=== PATIENT | male | born 1945 | race Two or more races ===

== ENCOUNTER 2016-10-16 01:03 | Inpatient (IN) | payer OTHER ==
[~2016-10-16] VITALS: Ht 167.6 cm; Wt 79.4 kg
[2016-10-16 02:03] LABS: Basophils # (auto) 0 uL; Eosinophils # (auto) 0.1 uL; Eosinophils % (auto) 0.8 % (0.0-7.0); Hemoglobin 12.3 g/dL (13.5-17.5); Lymphocytes % (auto) 13.5 % (10.0-50.0); Mean Corpuscular Hemoglobin 30.5 pg (28.0-32.0); Mean Corpuscular Hgb Conc. 32.4 g/dL (32.0-36.0); Mean Corpuscular Volume 94.3 fL (80.0-100.0); Mean Platelet Volume 7.5 fL (7.4-10.4); Monocytes # (auto) 0.6 uL; Monocytes % (auto) 8.4 % (0.0-12.0); Neutrophils # (auto) 5.6 uL; Neutrophils % (auto) 77.3 % (37.0-80.0); Platelet Count (auto) 226 10^3/uL (140-450); White Blood Cell 7.2 10^3/uL (4.4-10.8)
[2016-10-16 02:24] LABS: Albumin 2.8 g/dL (3.4-5.0); Bilirubin, Total 0.3 mg/dL (0.2-1.0); Calcium 8.2 mg/dL (8.5-10.1); Magnesium 2.5 mg/dL (1.6-2.6); Temperature: 21.4 C (20.0-25.0); Total Protein 6.2 g/dL (6.4-8.2)
[2016-10-16 02:32] LABS: Partial Thromboplastin Time 26.3 sec (22.64-33.71); Prothrombin Time 10.8 sec (9.37-12.3)
[2016-10-16] MEDS ORDERED: DEXTROSE 10% 1,000 ML IV ONE ×2 (05:00→09:30)
[2016-10-16] MEDS ORDERED: RANI-226 PO (08:28)
[2016-10-16] MEDS ORDERED: MEMA1TAB (08:28)
[2016-10-16] MEDS ORDERED: FLUO20CA19 PO (08:28)
[2016-10-16] MEDS ORDERED: TAMS0.4C36 PO (08:28)
[2016-10-16] MEDS ORDERED: TRAM50TA2 (08:28)
[2016-10-16] MEDS ORDERED: GABA300C8 PO (08:28)
[2016-10-16] MEDS ORDERED: FUR20T (08:28)
[2016-10-16] MEDS ORDERED: CARV25TA55 PO (08:28)
[2016-10-16] MEDS ORDERED: CLO01T PO (08:28)
[2016-10-16] MEDS ORDERED: CLOP75TA41 PO (08:28)
[2016-10-16] MEDS ORDERED: INSRTEST IV (08:32)
[2016-10-16] MEDS ORDERED: INSU70IN3 SC ×2 (08:32)
[2016-10-16] MEDS ORDERED: SODIUM CHLORIDE 0.9% 1,000 ML IV SCH (09:03)
[2016-10-16] MEDS ORDERED: NITROGLYCERIN 0.4 MG SL TAB SL PRN (09:15)
[2016-10-16] MEDS ORDERED: DEXTROSE (50%) 50ML SYRG IV PRN (09:15)
[2016-10-16] MEDS ORDERED: PROCHLORPERAZINE EDISYLATE 5 MG/ML 2ML VIAL IV PRN (09:15)
[2016-10-16] MEDS ORDERED: ACETAMINOPHEN 500 MG TAB PO PRN (09:15)
[2016-10-16] MEDS ORDERED: LACTULOSE 20Gm/30ML SOLN PO PRN (09:15)
[2016-10-16] MEDS ORDERED: MORPHINE SULF INJ 2 MG/ML SYRINGE 1ML IV PRN ×2 (09:15)
[2016-10-16] MEDS ORDERED: HYDROcodone-ACET 5/325MG TAB PO PRN (09:15)
[2016-10-16] MEDS ORDERED: LORazepam 0.5 MG TAB PO PRN (09:15)
[2016-10-16] MEDS ORDERED: TEMAZEPAM 15 MG CAP PO PRN (09:15)
[2016-10-16] MEDS ORDERED: FLUOXETINE HCL 40 MG PO SCH (10:00)
[2016-10-16] MEDS: ASPirin 81 mg TAB PO SCH (10:04)
[2016-10-16] MEDS: cloNIDine HCL 0.1 MG TAB PO SCH (10:04)
[2016-10-16 10:05] LABS: Amylase 57 U/L (25-115)
[2016-10-16] MEDS: CLOPIDOGREL BISULFATE 75 MG TAB PO SCH (10:05)
[2016-10-16] MEDS: MEMANTINE HCL 5 MG TAB PO SCH ×2 (10:05→21:46)
[2016-10-16] MEDS: FLUoxetine HCL 20 MG CAP PO SCH (10:05)
[2016-10-16] MEDS: GABAPENTIN 300 MG CAP PO SCH ×2 (10:05→21:45)
[2016-10-16] MEDS: ENOXAPARIN SOD 30 MG/0.3 ML SYRINGE SC SCH (10:08)
[2016-10-16] MEDS ORDERED: ALBUTEROL SULF 2.5 MG/0.5ML(0.5%) NEB SOLN NEB PRN (10:30)
[2016-10-16] MEDS ORDERED: hydrALAZINE HCL 20 MG/ML VL IV PRN (10:30)
[2016-10-16 10:36] VITALS: BP 153/70
[2016-10-16 10:40] VITALS: BP 146/42
[2016-10-16] MEDS ORDERED: CARVEDILOL 12.5 MG TAB PO ONE (10:45)
[2016-10-16] MEDS: ALBUTEROL SULF 2.5 MG/0.5ML(0.5%) NEB SOLN NEB SCH ×2 (10:59→18:46)
[2016-10-16] MEDS: IPRATROPIUM BROM 0.5 MG/2.5ML INH SOL NEB SCH ×2 (10:59→18:46)
[2016-10-16 11:59] VITALS: BP 153/76
[2016-10-16] MEDS: ACCU-CHEK COMFORT CURVE STRIP VI SCH ×3 (12:10→21:44)
[2016-10-16] MEDS: hydrALAZINE HCL 10 MG TAB PO SCH ×2 (14:22→21:45)
[2016-10-16 15:00] VITALS: BP 136/77
[2016-10-16 17:50] LABS: Urine RBC None Seen /hpf (0 - 3)
[2016-10-16 18:31] LABS: Urine Bilirubin Negative (Negative); Urine Blood Negative /uL (Negative); Urine Color Yellow (Yellow); Urine Glucose Normal (Normal); Urine Hyaline Cast FEW /lpf (0 - 2); Urine Ketone Negative (Negative); Urine Nitrite Negative (Negative); Urine Urobilinogen Normal (Negative)
[2016-10-16] MEDS: ATORVASTATIN 20 MG TAB PO SCH (21:46)
[2016-10-16] MEDS: TAMSULOSIN HYDROCHLORIDE 0.4 MG CAP PO SCH (21:46)
[2016-10-16] MEDS: CARVEDILOL 12.5 MG TAB PO SCH (21:46)
[2016-10-16 22:00] VITALS: BP 149/79
[2016-10-17] MEDS: ACCU-CHEK COMFORT CURVE STRIP VI SCH ×7 (00:15→23:43)
[2016-10-17] MEDS: ALBUTEROL SULF 2.5 MG/0.5ML(0.5%) NEB SOLN NEB SCH ×3 (01:08→23:48)
[2016-10-17] MEDS: IPRATROPIUM BROM 0.5 MG/2.5ML INH SOL NEB SCH ×3 (01:09→23:48)
[2016-10-17 05:30] VITALS: BP 150/63
[2016-10-17] MEDS: hydrALAZINE HCL 10 MG TAB PO SCH ×3 (05:44→21:38)
[2016-10-17 06:32] LABS: Basophils # (auto) 0 uL; Basophils % (auto) 0.4 % (0.0-2.0); Eosinophils # (auto) 0.1 uL; Eosinophils % (auto) 2.7 % (0.0-7.0); Hematocrit 34.3 % (41.0-53.0); Hemoglobin 11.1 g/dL (13.5-17.5); Lymphocytes # (auto) 1.8 uL; Lymphocytes % (auto) 31.6 % (10.0-50.0); Mean Corpuscular Hemoglobin 30.4 pg (28.0-32.0); Mean Corpuscular Hgb Conc. 32.3 g/dL (32.0-36.0); Mean Platelet Volume 7.7 fL (7.4-10.4); Monocytes # (auto) 0.5 uL; Monocytes % (auto) 9.8 % (0.0-12.0); Neutrophils # (auto) 3.1 uL; Neutrophils % (auto) 55.5 % (37.0-80.0); Platelet Count (auto) 226 10^3/uL (140-450); Red Cell Distribution Width 17.7 % (11.6-16.0); White Blood Cell 5.6 10^3/uL (4.4-10.8)
[2016-10-17 07:23] LABS: Albumin 2.4 g/dL (3.4-5.0); BUN/Creatinine Ratio 6.6; Bilirubin, Total 0.2 mg/dL (0.2-1.0); Calcium 7.6 mg/dL (8.5-10.1); Potassium 3.6 mmol/L (3.5-5.1); Total Protein 5.5 g/dL (6.4-8.2)
[2016-10-17 08:35] VITALS: BP 153/59
[2016-10-17] MEDS: CLOPIDOGREL BISULFATE 75 MG TAB PO SCH (09:20)
[2016-10-17] MEDS: FLUoxetine HCL 20 MG CAP PO SCH (09:20)
[2016-10-17] MEDS: MEMANTINE HCL 5 MG TAB PO SCH ×2 (09:20→21:38)
[2016-10-17] MEDS: GABAPENTIN 300 MG CAP PO SCH ×2 (09:20→21:37)
[2016-10-17] MEDS: ASPirin 81 mg TAB PO SCH (09:23)
[2016-10-17] MEDS: cloNIDine HCL 0.1 MG TAB PO SCH (09:23)
[2016-10-17] MEDS: CARVEDILOL 12.5 MG TAB PO SCH ×2 (09:24→21:38)
[2016-10-17] MEDS: ENOXAPARIN SOD 30 MG/0.3 ML SYRINGE SC SCH (09:24)
[2016-10-17 12:30] VITALS: BP 161/73
[2016-10-17] MEDS ORDERED: SODIUM CHL 0.9% 1000 ML BAG XX ONE (13:00)
[2016-10-17] MEDS ORDERED: ALBUMIN 25% 100 ML IV ONE (13:18)
[2016-10-17 15:39] VITALS: BP 115/70
[2016-10-17 17:00] VITALS: BP 121/52
[2016-10-17] MEDS: ATORVASTATIN 20 MG TAB PO SCH (21:37)
[2016-10-17] MEDS: TAMSULOSIN HYDROCHLORIDE 0.4 MG CAP PO SCH (21:37)
[2016-10-17 22:00] VITALS: BP 143/68
[2016-10-18 05:00] VITALS: BP 135/55
[2016-10-18] MEDS: ACCU-CHEK COMFORT CURVE STRIP VI SCH ×3 (05:02→12:00)
[2016-10-18] MEDS: hydrALAZINE HCL 10 MG TAB PO SCH (05:40)
[2016-10-18 06:01] LABS: Basophils # (auto) 0 uL; Basophils % (auto) 0.3 % (0.0-2.0); Eosinophils # (auto) 0.2 uL; Hematocrit 33.5 % (41.0-53.0); Hemoglobin 10.9 g/dL (13.5-17.5); Lymphocytes # (auto) 1.5 uL; Lymphocytes % (auto) 27.4 % (10.0-50.0); Mean Corpuscular Hemoglobin 30.5 pg (28.0-32.0); Mean Corpuscular Hgb Conc. 32.5 g/dL (32.0-36.0); Mean Corpuscular Volume 93.9 fL (80.0-100.0); Mean Platelet Volume 7.9 fL (7.4-10.4); Monocytes # (auto) 0.7 uL; Monocytes % (auto) 12.1 % (0.0-12.0); Neutrophils # (auto) 3.1 uL; Neutrophils % (auto) 57.2 % (37.0-80.0); Platelet Count (auto) 193 10^3/uL (140-450); Red Cell Distribution Width 17.9 % (11.6-16.0); White Blood Cell 5.5 10^3/uL (4.4-10.8)
[2016-10-18 06:22] LABS: BUN/Creatinine Ratio 5.5; Magnesium 2.5 mg/dL (1.6-2.6); Potassium 3.9 mmol/L (3.5-5.1)
[2016-10-18] MEDS: IPRATROPIUM BROM 0.5 MG/2.5ML INH SOL NEB SCH ×2 (07:00→11:31)
[2016-10-18] MEDS: ALBUTEROL SULF 2.5 MG/0.5ML(0.5%) NEB SOLN NEB SCH ×2 (07:00→11:31)
[2016-10-18 09:00] VITALS: BP 180/74
[2016-10-18 10:01] VITALS: BP 180/74
[2016-10-18] MEDS: ASPirin 81 mg TAB PO SCH (10:40)
[2016-10-18] MEDS: MEMANTINE HCL 5 MG TAB PO SCH (10:41)
[2016-10-18] MEDS: GABAPENTIN 300 MG CAP PO SCH (10:41)
[2016-10-18] MEDS: CLOPIDOGREL BISULFATE 75 MG TAB PO SCH (10:42)
[2016-10-18] MEDS: FLUoxetine HCL 20 MG CAP PO SCH (10:42)
[2016-10-18] MEDS: ENOXAPARIN SOD 30 MG/0.3 ML SYRINGE SC SCH (10:42)
[2016-10-18] MEDS: CARVEDILOL 12.5 MG TAB PO SCH (10:47)
== END 2016-10-18 12:26 | disposition home health service (06) | DRG 637 ==
LOC: ER 01:03 → TELE 01:04 → TELE-WESTW 10:36
PROVIDERS: ADMIT Internal Medicine; ATTEND Family Medicine
PROC: 5A1D00Z (ICD-10-PCS; principal; 2016-10-17)
DX: E11.649 Type 2 diabetes mellitus with hypoglycemia without coma (principal); G93.41 Metabolic encephalopathy; I13.2 Hypertensive heart and chronic kidney disease with heart failure and with stage 5 chronic kidney disease, or end stage renal disease; N39.0 Urinary tract infection, site not specified; N18.6 End stage renal disease; F03.90 Unspecified dementia, unspecified severity, without behavioral disturbance, psychotic disturbance, mood disturbance, and anxiety; E11.51 Type 2 diabetes mellitus with diabetic peripheral angiopathy without gangrene; I25.10 Atherosclerotic heart disease of native coronary artery without angina pectoris; E11.22 Type 2 diabetes mellitus with diabetic chronic kidney disease; J44.9 Chronic obstructive pulmonary disease, unspecified; I50.9 Heart failure, unspecified; Z85.038 Personal history of other malignant neoplasm of large intestine; Z99.2 Dependence on renal dialysis; Z86.73 Personal history of transient ischemic attack (TIA), and cerebral infarction without residual deficits; Z79.4 Long term (current) use of insulin; Z83.3 Family history of diabetes mellitus; Z87.891 Personal history of nicotine dependence; Z98.61 Coronary angioplasty status; Z87.81 Personal history of (healed) traumatic fracture; Z82.61 Family history of arthritis; Z83.49 Family history of other endocrine, nutritional and metabolic diseases; Z79.899 Other long term (current) drug therapy
CPT/HCPCS: 36415; 70450; 71010; 80048; 80053; 80061; 81001; 82150; 82550; 82607; 82746; 82962; 83036; 83690; 83735; 83880; 84443; 84484; 85025; 85610; 85730; 87040; 90935; 93005; 94640; 96372; G0434; J1642

== ENCOUNTER 2018-03-25 08:38 | Emergency (ER) | payer OTHER ==
[~2018-03-25] VITALS: Ht 172.7 cm; Wt 68.0 kg
[~2018-03-25 08:38] MED LIST: CARV25TA55 PO; CLO01T PO; CLOP75TA41 PO; FLUO20CA19 PO; FUR20T; GABA300C10 PO; INSRTEST IV; INSU70IN3 SC; MEMA1TAB; RANI-226 PO; TAMS0.4C36 PO; TRAM50TA2
[2018-03-25] MEDS ORDERED: SODIUM CHLORIDE 0.9% 1,000 ML IV ONE (09:54)
[2018-03-25] MEDS ORDERED: MORPHINE SULF INJ 2 MG/ML SYRINGE 1ML IV ONE (10:00)
[2018-03-25] MEDS ORDERED: ONDANSETRON HCL 4 MG/2 ML VIAL IV ONE (10:00)
[2018-03-25 10:36] LABS: Basophils # (auto) 0 uL; Basophils % (auto) 0.3 % (0.0-2.0); Eosinophils # (auto) 0.1 uL; Eosinophils % (auto) 1.6 % (0.0-7.0); Hematocrit 40.4 % (41.0-53.0); Hemoglobin 13.7 g/dL (13.5-17.5); Lymphocytes # (auto) 0.7 uL; Lymphocytes % (auto) 12.4 % (10.0-50.0); Mean Corpuscular Hemoglobin 32.5 pg (28.0-32.0); Mean Corpuscular Hgb Conc. 33.9 g/dL (32.0-36.0); Monocytes # (auto) 0.9 uL; Monocytes % (auto) 15.4 % (0.0-12.0); Neutrophils # (auto) 4.2 uL; Neutrophils % (auto) 70.3 % (37.0-80.0); Nucleated Red Blood Cells % 0.1 %; Platelet Count (auto) 173 10^3/uL (140-450); Red Blood Cells 4.21 10^6/uL (4.5-5.90); Red Cell Distribution Width 14.6 % (11.8-14.3)
[2018-03-25 10:58] LABS: Albumin 3.4 g/dL (3.4-5.0); Anion Gap 10 (5-15); Blood Urea Nitrogen 53 mg/dL (7-18); Calcium 8.5 mg/dL (8.5-10.1); Carbon Dioxide 31 mmol/L (21-32); Chloride 90 mmol/L (98-107); Glucose 210 mg/dL (74-106); Magnesium 2.9 mg/dL (1.6-2.6); Potassium 5.3 mmol/L (3.5-5.1); Sodium 131 mmol/L (136-145)
[2018-03-25 11:01] LABS: Alanine Aminotransferase 37 U/L (16-61); Aspartate Aminotransferase 14 U/L (15-37); GFR African American 10 mL/min; GFR Non-African American 8 mL/min
[2018-03-25 11:02] LABS: BUN/Creatinine Ratio 7.4
[2018-03-25 11:03] LABS: Bilirubin, Total 0.6 mg/dL (0.2-1.0); Total Protein 7.7 g/dL (6.4-8.2)
[2018-03-25 11:12] LABS: Alkaline Phosphatase 152 U/L (45-117)
[2018-03-25 13:45] VITALS: BP 140/63
== END 2018-03-25 15:26 | disposition home or self-care (01) ==
LOC: ER 08:38 → EDBD 08:38 → ER 15:26
DX: S00.03XA Contusion of scalp, initial encounter (principal); M47.892 Other spondylosis, cervical region; N17.9 Acute kidney failure, unspecified; I69.051 Hemiplegia and hemiparesis following nontraumatic subarachnoid hemorrhage affecting right dominant side; E11.22 Type 2 diabetes mellitus with diabetic chronic kidney disease; I10 Essential (primary) hypertension; N18.9 Chronic kidney disease, unspecified; M54.9 Dorsalgia, unspecified; R42 Dizziness and giddiness; G89.29 Other chronic pain; Z99.2 Dependence on renal dialysis; W18.39XA Other fall on same level, initial encounter; Y93.89 Activity, other specified; Y99.8 Other external cause status; Y92.098 Other place in other non-institutional residence as the place of occurrence of the external cause
CPT/HCPCS: 36415; 70450; 71046; 72125; 80053; 83735; 84443; 84484; 85025; 96361; 96374; 96375; 99285; J2270; J2405; 93005

== ENCOUNTER 2018-09-03 11:30 | Inpatient (IN) | payer OTHER | END 2018-09-05 17:25 | disposition home or self-care (01) | LOC: TELE-CENTR 09-04 16:42 → ER 11:30 → TELE 19:01 | DX: G93.40 Encephalopathy, unspecified (principal); N18.6 End stage renal disease; I12.0 Hypertensive chronic kidney disease with stage 5 chronic kidney disease or end stage renal disease; E11.65 Type 2 diabetes mellitus with hyperglycemia; E11.649 Type 2 diabetes mellitus with hypoglycemia without coma; E11.21 Type 2 diabetes mellitus with diabetic nephropathy; E78.5 Hyperlipidemia, unspecified; F03.90 Unspecified dementia, unspecified severity, without behavioral disturbance, psychotic disturbance, mood disturbance, and anxiety; E11.42 Type 2 diabetes mellitus with diabetic polyneuropathy; D63.8 Anemia in other chronic diseases classified elsewhere ==

== ENCOUNTER 2019-04-26 15:12 | Emergency (ER) | payer OTHER ==
[~2019-04-26] VITALS: Ht 177.8 cm; Wt 33.6 kg
[~2019-04-26 15:12] MED LIST changes: +MEM5T PO; -MEMA1TAB; +MID10T PO; +PANT40TA2 PO; +SIMV10TA84 PO; -TRAM50TA2; +TRAZ50TA2 PO
[2019-04-26 16:28] VITALS: BP 174/68
[2019-04-26] MEDS ORDERED: TETANUS-DIPTH-ACEL PERTUSSIS 0.5ML SYRG IM ONE (16:30)
[2019-04-26] MEDS ORDERED: LIDOCAINE HCL 1 % PF INJ 2ML AMP IJ ONE (16:45)
== END 2019-04-26 17:42 | disposition home or self-care (01) ==
LOC: ER 15:17
DX: S01.01XA Laceration without foreign body of scalp, initial encounter (principal); M89.8X9 Other specified disorders of bone, unspecified site; E11.22 Type 2 diabetes mellitus with diabetic chronic kidney disease; I12.0 Hypertensive chronic kidney disease with stage 5 chronic kidney disease or end stage renal disease; N18.6 End stage renal disease; Z99.2 Dependence on renal dialysis; Z88.5 Allergy status to narcotic agent; Z79.4 Long term (current) use of insulin; Z79.899 Other long term (current) drug therapy; Z79.01 Long term (current) use of anticoagulants; Z86.73 Personal history of transient ischemic attack (TIA), and cerebral infarction without residual deficits; Z98.61 Coronary angioplasty status
CPT/HCPCS: 12002; 70450; 72192; 90471; 90715

== ENCOUNTER 2019-08-11 12:03 | Inpatient (IN) | payer OTHER ==
[~2019-08-11] VITALS: Ht 180.3 cm; Wt 70.0 kg
[2019-08-11 18:06] LABS: Basophils # (auto) 0 uL; Basophils % (auto) 0.5 % (0.0-2.0); Eosinophils # (auto) 0.1 uL; Eosinophils % (auto) 1.7 % (0.0-7.0); Hemoglobin 10.3 g/dL (13.5-17.5); Lymphocytes # (auto) 0.4 uL; Lymphocytes % (auto) 13.1 % (10.0-50.0); Mean Corpuscular Hemoglobin 31.4 pg (28.0-32.0); Mean Corpuscular Hgb Conc. 33.3 g/dL (32.0-36.0); Mean Corpuscular Volume 94.5 fL (80.0-100.0); Monocytes # (auto) 0.5 uL; Neutrophils # (auto) 2.3 uL; Neutrophils % (auto) 69.7 % (37.0-80.0); Platelet Count (auto) 130 10^3/uL (140-450); Red Blood Cells 3.28 10^6/uL (4.5-5.90); Red Cell Distribution Width 16.2 % (11.8-14.3); White Blood Cell 3.4 10^3/uL (4.4-10.8)
[2019-08-11 18:22] LABS: Alanine Aminotransferase < 6 U/L (16-61); Anion Gap 11 (5-15); Aspartate Aminotransferase 11 U/L (15-37); BUN/Creatinine Ratio 6.3; Blood Urea Nitrogen 29 mg/dL (7-18); Calcium 8.3 mg/dL (8.5-10.1); Carbon Dioxide 26 mmol/L (21-32); Chloride 99 mmol/L (98-107); GFR African American 16 mL/min; GFR Non-African American 13 mL/min; Glucose 117 mg/dL (74-106); Sodium 136 mmol/L (136-145)
[2019-08-11 18:23] LABS: INR 1.21 (0.9-1.15)
[2019-08-11 18:24] LABS: Alkaline Phosphatase 129 U/L (45-117); Bilirubin, Total 0.6 mg/dL (0.2-1.0)
[2019-08-12] VITALS (7 sets, daily range): BP systolic 100–177; BP diastolic 56–77
[2019-08-12] MEDS ORDERED: MORPHINE SULF INJ 2 MG/ML SYRINGE 1ML IV PRN ×2 (01:00→03:00)
[2019-08-12] MEDS ORDERED: FUROSEMIDE 40 MG/4 ML VIAL IV ONE (01:00)
[2019-08-12] MEDS ORDERED: DEXTROSE (50%) 50ML SYRG IV PRN (01:00)
[2019-08-12] MEDS ORDERED: TEMAZEPAM 15 MG CAP PO PRN (01:00)
[2019-08-12] MEDS ORDERED: ACETAMINOPHEN 325 MG TAB PO PRN (01:00)
[2019-08-12] MEDS ORDERED: ONDANSETRON HCL 4 MG/2 ML VIAL IV PRN (01:00)
[2019-08-12] MEDS ORDERED: NITROGLYCERIN 0.4 MG SL TAB SL PRN (01:00)
[2019-08-12] MEDS ORDERED: HYDROcodone-ACET 5/325MG TAB PO PRN (03:00)
--- NOTE | 2019-08-12 04:13 | NUR ---
Telemetry admit from ER ASIF DOTY admitted to Telemetry unit after SBAR received. Patient oriented to ALIE HIGHTOWER RN primary RN, unit, room, bed, and unit policies regarding patient care and visiting hours. Patient now on continuous telemetry monitoring, tele box # [id number] and telemetry reading on arrival to unit is SR 73. Patient placed on bedside oxygen, weighed by bedscale and encouraged to call if they need something. All questions and concerns addressed, patient verbalized understanding. Note:
[2019-08-12] MEDS: FUROSEMIDE 20 MG/2 ML VIAL IV SCH ×2 (04:15→17:13)
[2019-08-12] MEDS: InsuLIN REG 1unit/0.01ml Soln (100units/ml) SC SCH ×3 (06:00→17:13)
[2019-08-12] MEDS: ACCU-CHEK COMFORT CURVE STRIP VI SCH ×3 (06:00→17:09)
[2019-08-12] MEDS ORDERED: MIDODRINE HCL 10 MG TAB PO SCH (06:00)
--- NOTE | 2019-08-12 07:43 | NUR ---
Opening Note Assumed pt care from [facility] nurse. Pt is a/ox4 with no s/s of distress or SOB. Pt is currently sitting upright in bed with no complaints at this time. Dressing to pt's R mariana catheter is present, mild old blood present on dressing. Pt states that he has not had dialysis in 8 days. Dressings to both feets are clean dry and intact; pending a wound consult. Discussed POC with pt; pt verbalized understanding. Safety measures maintained with call light within reach, bed in lowest position and side rails up. Will continue to monitor for changes q1hr and prn.
--- NOTE | 2019-08-12 08:38 | NUR ---
Elevated BP Reported Elevated BP of 188/76 reported with a HR of 74. Reassessed pt, currently asymptomatic. Reassessed BP; currently 148/66 with a HR of 70. Will continue to monitor.
--- NOTE | 2019-08-12 09:42 | NUR ---
Dr Church at Bedside MD to see pt. MD plans on transferring pt to [facility]. No new orders at this time. Will continue to monitor. MD requested that dressing to mariana catheter be changed. Will implement and follow through.
[2019-08-12] MEDS ORDERED: PANTOPRAZOLE 40 MG TAB PO SCH (10:00)
[2019-08-12] MEDS ORDERED: CLOPIDOGREL BISULFATE 75 MG TAB PO SCH (10:00)
[2019-08-12] MEDS ORDERED: MEMANTINE HCL 5 MG TAB PO SCH (10:00)
--- NOTE | 2019-08-12 10:24 | NUR ---
I faxed transfer order to [facility] and [facility].
[2019-08-12] MEDS: GABAPENTIN 300 MG CAP PO SCH ×2 (11:14→21:44)
--- NOTE | 2019-08-12 11:40 | NUR ---
Pt Signed Transfer Agreement Pt signed transfer agreement. Pt aware of transfer and has fully agreed. Pt's and niece is present at bedside. Will continue with transfer.
--- NOTE | 2019-08-12 11:45 | NUR ---
WOUND CARE NOTE: PATIENT HAS DISCHARGE ORDER FOR TRANSFER TO [facility] PER DR. AGUILAR. PATIENT IS AWAITING A BED AT [facility] AT THIS TIME. FOOD SERVICE AGENT/CASE MANAGEMENT IS WORKING ON THE TRANSFER. HE WAS NOTED TO HAVE WOUNDS TO HIS RIGHT ANKLE AND HEEL UPON ADMIT. WOUND PHOTOS WERE TAKEN AT THAT TIME BY BEDSIDE NURSE FOR REFERENCE. PATIENT WOULD BENEFIT FROM EOD/PRN DRESSING CHANGE TO WOUNDS ON RIGHT FOOT UNTIL DISCHARGED. SKIN/WOUND CARE PLAN ALSO IMPLEMENTED AT THIS TIME. NO FURTHER WOUND CARE MONITORING NEEDED AT THIS TIME.
--- NOTE | 2019-08-12 12:42 | NUR ---
I spoke with [facility] Automatic Oven Operator Blanca, she is aware of the order to transfer to [facility], she will speak with MD and give me a call back.
--- NOTE | 2019-08-12 13:28 | NUR ---
Elevated BP Reported BP of 177/77 with a HR of 74 reported. Pt is asymptomatic. Reassessed BP, currently 150/74 with a HR of 72. Will continue to monitor.
--- NOTE | 2019-08-12 14:24 | NUR ---
Nutrition Assessment Notes Please refer to link for full nutrition assessment notes Est energy needs: 4291-5238 kcals (30-35 kcals /kgBW) Est protein needs: 77-84 gms/day (1.1-1.2 gm/kgBW) Will continue to monitor and reassess prn Addendum: 08/12/19 at [address] Amended: Links added. Addendum: 08/12/19 at [address] Further Recommendation Consider adding Renal Standard diet to current diet order
--- NOTE | 2019-08-12 15:37 | NUR ---
1530 08/12/19 I contacted [facility] Fuse Assembler Blanca [phone] and requested an update on the status of the transfer to [facility]. Per Blanca she has been in contact with [facility] housefellow and there is no bed yet but they are working on it. Per Blanca they will contact the nurse's station when a bed becomes available (and set up transportation as well)-contact information provided.
--- NOTE | 2019-08-12 17:47 | NUR ---
Additional Contact Family requested that they would be called when information of transfer occurs. Ivy [phone]
[2019-08-12] MEDS ORDERED: TAMSULOSIN HYDROCHLORIDE 0.4 MG CAP PO SCH (18:00)
--- NOTE | 2019-08-12 20:00 | NUR ---
OPENING NOTE RECEIVED REPORT FROM DAYSHIMARICEL RN. ASSUMING ROLE OF CARE OF PATIENT AT THIS TIME. PATIENT SHOWING NO SIGN OF DISTRESS, SHORTNESS OF BREATH, AND PATIENT STATES PAIN AND REQUESTING TYLENOL. MEDICATION PROVIDED AT THIS TIME. PATIENT EDUCATED ON PLAN OF CARE FOR THE NIGHT AND PATIENT VERBALIZED UNDERSTANDING. NO CALL RECEIVED FROM [facility] AT THIS TIME. WILL CONTINUE TO MONITOR PATIENT. BED LOWERED, CALL LIGHT WITHIN REACH, AND PATIENT WILL BE ROUNDED ON EVERY HOUR AND NEEDED.
--- NOTE | 2019-08-12 21:32 | NUR ---
SPOKE WITH JOSEE FROM CASE MANAGEMENT. A BED IS AVAILABLE AND TRANSPORT WILL BE SET UP THROUGH [facility]. WILL RECEIVE A CALL FROM ANAYELI. PATIENT WILL BE PREPPED FOR TRANSPORT AND FAMILY WILL BE NOTIFIED.
--- NOTE | 2019-08-12 21:43 | NUR ---
RECEIVED CALL FROM ANAYELI [facility] TRANSPORT WILL BE ARRANGED. A FOLLOW UP CALL WILL BE GIVEN WITH AN ETA. WILL CONTINUE TO MONITOR PATIENT AT THIS TIME.
--- NOTE | 2019-08-12 21:50 | NUR ---
RECEIVED CALL FROM ANAYELI FORD FOR [facility] IS 2300. PATIENT WILL BE PREPPED FOR TRANSFER. WILL CONTINUE TO MONITOR.
[2019-08-12] MEDS ORDERED: ATORVASTATIN 20 MG TAB PO SCH (22:00)
--- NOTE | 2019-08-12 22:31 | NUR ---
REPORT PROVIDED TO VIVEK BLANC AT [facility] VIVEK BLANC INFORMED OF PATIENT'S TRANSFER AND ETA TO THIS HOSPITAL AT 2300. ALL QUESTIONS ANSWERED. PATIENT READY FOR TRANSPORT. WILL CONTINUE TO MONITOR.
--- NOTE | 2019-08-12 23:20 | NUR ---
PATIENT TAKEN BY [facility]. PATIENT STABLE AT THIS TIME.
== END 2019-08-12 23:20 | disposition short-term general hospital (02) | DRG 314 ==
LOC: EDBD 12:03 → ER 12:03 → TELE 12:04 → TELE-WESTW 08-12 03:36
PROVIDERS: ADMIT Nurse Practitioner; ATTEND Internal Medicine Geriatric Medicine
DX: T82.41XA Breakdown (mechanical) of vascular dialysis catheter, initial encounter (principal); N18.6 End stage renal disease; S72.441A Displaced fracture of lower epiphysis (separation) of right femur, initial encounter for closed fracture; S72.461A Displaced supracondylar fracture with intracondylar extension of lower end of right femur, initial encounter for closed fracture; I12.0 Hypertensive chronic kidney disease with stage 5 chronic kidney disease or end stage renal disease; E87.70 Fluid overload, unspecified; D63.8 Anemia in other chronic diseases classified elsewhere; G47.00 Insomnia, unspecified; E11.51 Type 2 diabetes mellitus with diabetic peripheral angiopathy without gangrene; L89.899 Pressure ulcer of other site, unspecified stage; E11.22 Type 2 diabetes mellitus with diabetic chronic kidney disease; Y71.2 Prosthetic and other implants, materials and accessory cardiovascular devices associated with adverse incidents; Y92.89 Other specified places as the place of occurrence of the external cause; Z99.2 Dependence on renal dialysis; Z88.8 Allergy status to other drugs, medicaments and biological substances; Z79.4 Long term (current) use of insulin; Z86.73 Personal history of transient ischemic attack (TIA), and cerebral infarction without residual deficits; Z95.5 Presence of coronary angioplasty implant and graft; Z83.3 Family history of diabetes mellitus; Z79.899 Other long term (current) drug therapy
CPT/HCPCS: 36415; 71045; 73562; 80053; 82962; 83880; 84484; 85025; 85610; 85730; 87081; 96372; 96374; 96375; G0378; J1815

== ENCOUNTER 2020-07-08 20:17 | Inpatient (IN) | payer OTHER ==
[~2020-07-08] VITALS: Ht 160 cm; Wt 67.5 kg
[~2020-07-08 20:17] MED LIST changes: -FLUO20CA19 PO; -FUR20T; -GABA300C10 PO; -MEM5T PO; -MID10T PO; -PANT40TA2 PO; -RANI-226 PO; -SIMV10TA84 PO; -TAMS0.4C36 PO; -TRAZ50TA2 PO
[2020-07-08 23:38] LABS: Basophils # (auto) 0 10 ^3/uL (0-0.2); Hematocrit 16.4 % (41.0-53.0); Lymphocytes # (auto) 0.8 10 ^3/uL (0.4-5.4); Neutrophils # (auto) 3.4 10 ^3/uL (1.6-8.6); Red Blood Cells 1.74 10^6/uL (4.5-5.90)
[2020-07-08 23:39] LABS: Basophils % (auto) 0.6 % (0.0-2.0); Eosinophils # (auto) 0 10 ^3/uL (0-0.8); Eosinophils % (auto) 0.9 % (0.0-7.0); Lymphocytes % (auto) 16.5 % (10.0-50.0); Mean Corpuscular Hemoglobin 32.2 pg (28.0-32.0); Mean Corpuscular Hgb Conc. 34.2 g/dL (32.0-36.0); Mean Corpuscular Volume 94.2 fL (80.0-100.0); Monocytes # (auto) 0.5 10 ^3/uL (0-1.3); Monocytes % (auto) 10.8 % (0.0-12.0); Neutrophils % (auto) 71.2 % (37.0-80.0); Platelet Count (auto) 156 10^3/uL (140-450); Red Cell Distribution Width 14.8 % (11.8-14.3); White Blood Cell 4.7 10^3/uL (4.4-10.8)
[2020-07-08 23:56] LABS: Albumin 2.3 g/dL (3.4-5.0); Calcium 8.3 mg/dL (8.5-10.1)
[2020-07-08 23:59] LABS: BUN/Creatinine Ratio 8.7; Bilirubin, Total 0.5 mg/dL (0.2-1.0); Total Protein 6.1 g/dL (6.4-8.2)
[2020-07-09 00:02] LABS: INR 1.12 (0.9-1.15); Partial Thromboplastin Time 29.9 sec (23.0-31.2)
[2020-07-09 00:12] LABS: Hemoglobin 5.6 g/dL (13.5-17.5)
[2020-07-09 00:16] LABS: Potassium 5.8 mmol/L (3.5-5.1)
[2020-07-09 08:00] VITALS: BP 156/65
[2020-07-09 08:15] VITALS: BP 167/65
[2020-07-09] MEDS ORDERED: SODIUM ZIRCONIUM CYCL 10 GM PAK PO ONE (08:15)
[2020-07-09] MEDS ORDERED: DEXTROSE (50%) 50ML SYRG IV ONE (08:15)
[2020-07-09] MEDS ORDERED: CALCIUM GLUC 4.65meq/50ml D5AE 50 ML IV ONE (08:15)
[2020-07-09] MEDS ORDERED: cloNIDine HCL 0.1 MG TAB PO ONE (08:15)
[2020-07-09] MEDS ORDERED: SODIUM BICARBONATE 8.4% INJ 50ML SYRINGE IV ONE (08:15)
[2020-07-09] MEDS ORDERED: InsuLIN REG 1unit/0.01ml Soln (100units/ml) IV ONE (08:15)
[2020-07-09 10:30] VITALS: BP 169/69
[2020-07-09 12:24] LABS: INR 1.12 (0.9-1.15); Partial Thromboplastin Time 28.7 sec (23.0-31.2)
[2020-07-09 13:18] LABS: Hematocrit 18.5 % (41.0-53.0)
[2020-07-09 13:21] LABS: Hemoglobin 6.5 g/dL (13.5-17.5)
[2020-07-09] MEDS ORDERED: HYDROcodone-ACET 5/325MG TAB PO PRN (14:00)
[2020-07-09] MEDS ORDERED: MORPHINE SULF INJ 2 MG/ML SYRINGE 1ML IV PRN ×2 (14:00)
[2020-07-09] MEDS ORDERED: DEXTROSE (50%) 50ML SYRG IV PRN (14:00)
[2020-07-09] MEDS ORDERED: NITROGLYCERIN 0.4 MG SL TAB SL PRN (14:00)
[2020-07-09] MEDS ORDERED: ONDANSETRON HCL 4 MG/2 ML VIAL IV PRN (14:00)
[2020-07-09] MEDS ORDERED: ACETAMINOPHEN 500 MG TAB PO PRN (14:00)
[2020-07-09] MEDS: ACCU-CHEK COMFORT CURVE STRIP VI SCH ×2 (17:27→22:02)
[2020-07-09] MEDS: InsuLIN REG 1unit/0.01ml Soln (100units/ml) SC SCH ×2 (17:27→22:00)
[2020-07-09] MEDS: LABETALOL HCL 5 MG/ML 4ML SYRINGE IV PRN (17:51)
[2020-07-09] MEDS: FAMOTIDINE 20 MG TAB PO SCH (17:51)
[2020-07-09] MEDS: CARVEDILOL 3.125 MG TAB PO SCH (22:03)
[2020-07-09 22:55] LABS: CRP High Sensitivity 3.4 mg/dL (< 0.3)
[2020-07-10 05:10] LABS: Basophils # (auto) 0 10 ^3/uL (0-0.2); Eosinophils # (auto) 0.1 10 ^3/uL (0-0.8); Mean Corpuscular Hemoglobin 31.6 pg (28.0-32.0); Monocytes # (auto) 0.6 10 ^3/uL (0-1.3); Neutrophils # (auto) 3.7 10 ^3/uL (1.6-8.6)
[2020-07-10 05:12] LABS: Basophils % (auto) 0.4 % (0.0-2.0); Eosinophils % (auto) 1.7 % (0.0-7.0); Hematocrit 20.3 % (41.0-53.0); Lymphocytes % (auto) 17.9 % (10.0-50.0); Mean Corpuscular Volume 92.8 fL (80.0-100.0); Monocytes % (auto) 11.1 % (0.0-12.0); Neutrophils % (auto) 68.9 % (37.0-80.0); Platelet Count (auto) 176 10^3/uL (140-450); Red Blood Cells 2.18 10^6/uL (4.5-5.90); Red Cell Distribution Width 14.6 % (11.8-14.3); White Blood Cell 5.3 10^3/uL (4.4-10.8)
[2020-07-10 05:35] LABS: Potassium 4.9 mmol/L (3.5-5.1)
[2020-07-10 05:42] LABS: Albumin 2.4 g/dL (3.4-5.0); Bilirubin, Total 0.5 mg/dL (0.2-1.0); Calcium 8.9 mg/dL (8.5-10.1); Total Protein 6.2 g/dL (6.4-8.2)
[2020-07-10 05:54] LABS: Hemoglobin 6.9 g/dL (13.5-17.5)
[2020-07-10] MEDS: ACCU-CHEK COMFORT CURVE STRIP VI SCH ×4 (06:29→23:06)
[2020-07-10] MEDS: InsuLIN REG 1unit/0.01ml Soln (100units/ml) SC SCH ×4 (06:29→22:00)
[2020-07-10] MEDS ORDERED: SODIUM CHL 0.9% 1000 ML BAG XX ONE (07:00)
[2020-07-10] MEDS: cefTRIAXone 1GM/50ML D5W 50 ML IV SCH (08:52)
[2020-07-10] MEDS: LABETALOL HCL 5 MG/ML 4ML SYRINGE IV PRN (08:58)
[2020-07-10] MEDS ORDERED: FAMOTIDINE 20 MG TAB PO SCH (10:00)
[2020-07-10] MEDS: CARVEDILOL 3.125 MG TAB PO SCH ×2 (10:00→23:06)
[2020-07-10 11:47] VITALS: BP 130/97
[2020-07-10 12:02] VITALS: BP 159/68
[2020-07-10 12:20] VITALS: BP 148/67
[2020-07-10] MEDS: AZITHROMYCIN 500MG/ 250ML 250 ML IV SCH (13:48)
[2020-07-10] MEDS ORDERED: EPOETIN ALFA 10,000 UNIT/1 ML VIAL SC ONE (21:00)
[2020-07-11 06:12] LABS: Basophils # (auto) 0 10 ^3/uL (0-0.2); Eosinophils # (auto) 0.1 10 ^3/uL (0-0.8); Lymphocytes # (auto) 0.7 10 ^3/uL (0.4-5.4); Neutrophils # (auto) 3.8 10 ^3/uL (1.6-8.6); Platelet Count (auto) 79 10^3/uL (140-450)
[2020-07-11 06:14] LABS: Basophils % (auto) 0.4 % (0.0-2.0); Hematocrit 22.5 % (41.0-53.0); Mean Corpuscular Hemoglobin 32.5 pg (28.0-32.0); Mean Corpuscular Hgb Conc. 35.6 g/dL (32.0-36.0); Mean Corpuscular Volume 91.3 fL (80.0-100.0); Monocytes # (auto) 0.7 10 ^3/uL (0-1.3); Monocytes % (auto) 13.6 % (0.0-12.0); Red Blood Cells 2.47 10^6/uL (4.5-5.90); White Blood Cell 5.3 10^3/uL (4.4-10.8)
[2020-07-11] MEDS: ACCU-CHEK COMFORT CURVE STRIP VI SCH ×4 (07:20→22:15)
[2020-07-11] MEDS: InsuLIN REG 1unit/0.01ml Soln (100units/ml) SC SCH ×4 (07:24→22:15)
[2020-07-11 07:49] LABS: BUN/Creatinine Ratio 7.4; Calcium 8.1 mg/dL (8.5-10.1); Potassium 3.8 mmol/L (3.5-5.1)
[2020-07-11] MEDS: cefTRIAXone 1GM/50ML D5W 50 ML IV SCH (09:27)
[2020-07-11] MEDS: AZITHROMYCIN 500MG/ 250ML 250 ML IV SCH (11:49)
[2020-07-11] MEDS: CARVEDILOL 3.125 MG TAB PO SCH ×2 (11:50→22:15)
[2020-07-11] MEDS: FAMOTIDINE 20 MG TAB PO SCH (11:50)
[2020-07-12] MEDS: ACCU-CHEK COMFORT CURVE STRIP VI SCH ×3 (06:18→17:30)
[2020-07-12] MEDS: InsuLIN REG 1unit/0.01ml Soln (100units/ml) SC SCH ×3 (06:32→17:30)
[2020-07-12] MEDS: cefTRIAXone 1GM/50ML D5W 50 ML IV SCH (09:00)
[2020-07-12] MEDS ORDERED: SODIUM CHL 0.9% 1000 ML BAG XX ONE (09:45)
[2020-07-12] MEDS: AZITHROMYCIN 500MG/ 250ML 250 ML IV SCH (10:00)
[2020-07-12 10:34] LABS: BUN/Creatinine Ratio 7.5; Calcium 8.2 mg/dL (8.5-10.1); Magnesium 2.4 mg/dL (1.6-2.6); Potassium 3.6 mmol/L (3.5-5.1)
[2020-07-12 16:00] VITALS: BP 100/69
[2020-07-12] MEDS: CARVEDILOL 3.125 MG TAB PO SCH (16:45)
[2020-07-12] MEDS ORDERED: EPOETIN ALFA 10,000 UNIT/1 ML VIAL SC ONE (21:00)
[2020-07-13] VITALS: BP 142/81
[2020-07-13] MEDS: InsuLIN REG 1unit/0.01ml Soln (100units/ml) SC SCH ×4 (00:14→17:00)
[2020-07-13] MEDS: ACCU-CHEK COMFORT CURVE STRIP VI SCH ×4 (00:14→16:34)
[2020-07-13] MEDS: CARVEDILOL 3.125 MG TAB PO SCH ×2 (00:28→10:27)
[2020-07-13 08:00] VITALS: BP 102/71
[2020-07-13 08:39] LABS: Basophils # (auto) 0 10 ^3/uL (0-0.2); Basophils % (auto) 0.1 % (0.0-2.0); Eosinophils # (auto) 0 10 ^3/uL (0-0.8); Monocytes # (auto) 0.7 10 ^3/uL (0-1.3); Neutrophils # (auto) 3.5 10 ^3/uL (1.6-8.6); Platelet Count (auto) 120 10^3/uL (140-450)
[2020-07-13 08:41] LABS: Eosinophils % (auto) 0.7 % (0.0-7.0); Hematocrit 21.1 % (41.0-53.0); Hemoglobin 7.4 g/dL (13.5-17.5); Lymphocytes # (auto) 0.7 10 ^3/uL (0.4-5.4); Lymphocytes % (auto) 14.6 % (10.0-50.0); Mean Corpuscular Hemoglobin 32.7 pg (28.0-32.0); Mean Corpuscular Hgb Conc. 35.3 g/dL (32.0-36.0); Mean Corpuscular Volume 92.7 fL (80.0-100.0); Monocytes % (auto) 14.1 % (0.0-12.0); Neutrophils % (auto) 70.5 % (37.0-80.0); Red Blood Cells 2.28 10^6/uL (4.5-5.90); Red Cell Distribution Width 15.6 % (11.8-14.3)
[2020-07-13 08:46] LABS: BUN/Creatinine Ratio 5.5; Calcium 8.2 mg/dL (8.5-10.1); Potassium 3.4 mmol/L (3.5-5.1)
[2020-07-13] MEDS: cefTRIAXone 1GM/50ML D5W 50 ML IV SCH (09:00)
[2020-07-13] MEDS: AZITHROMYCIN 500MG/ 250ML 250 ML IV SCH (10:00)
[2020-07-13] MEDS: FAMOTIDINE 20 MG TAB PO SCH (10:27)
[2020-07-13 16:00] VITALS: BP 150/82
[2020-07-13 18:02] VITALS: BP 149/53
[2020-07-14] MEDS ORDERED: SODIUM CHL 0.9% 1000 ML BAG XX ONE (07:00)
== END 2020-07-13 19:20 | disposition home or self-care (01) | DRG 314 ==
LOC: EDBD 20:17 → ER 20:20 → TELE 07-09 13:57 → TELE-WESTW 07-12 16:03
PROVIDERS: ADMIT Nurse Practitioner Acute Care; ATTEND Internal Medicine Geriatric Medicine
PROC: 30230N1 Transfusion of Nonautologous Red Blood Cells into Peripheral Vein, Open Approach (ICD-10-PCS; principal; 2020-07-09)
PROC: 3E1M39Z Irrigation of Peritoneal Cavity using Dialysate, Percutaneous Approach (ICD-10-PCS; 2020-07-10)
PROC: 5A1D70Z Performance of Urinary Filtration, Intermittent, Less than 6 Hours Per Day (ICD-10-PCS; 2020-07-10)
PROC: 5A1D70Z Performance of Urinary Filtration, Intermittent, Less than 6 Hours Per Day (ICD-10-PCS; 2020-07-12)
DX: T82.838A Hemorrhage due to vascular prosthetic devices, implants and grafts, initial encounter (principal); U07.1 COVID-19; I50.23 Acute on chronic systolic (congestive) heart failure; J12.89 Other viral pneumonia; N18.6 End stage renal disease; D62 Acute posthemorrhagic anemia; E44.0 Moderate protein-calorie malnutrition; I13.2 Hypertensive heart and chronic kidney disease with heart failure and with stage 5 chronic kidney disease, or end stage renal disease; E87.5 Hyperkalemia; D63.1 Anemia in chronic kidney disease; E11.22 Type 2 diabetes mellitus with diabetic chronic kidney disease; Y84.1 Kidney dialysis as the cause of abnormal reaction of the patient, or of later complication, without mention of misadventure at the time of the procedure; I25.10 Atherosclerotic heart disease of native coronary artery without angina pectoris; E11.65 Type 2 diabetes mellitus with hyperglycemia; Z79.02 Long term (current) use of antithrombotics/antiplatelets; Z99.2 Dependence on renal dialysis; Z79.4 Long term (current) use of insulin; Z83.3 Family history of diabetes mellitus; Z86.73 Personal history of transient ischemic attack (TIA), and cerebral infarction without residual deficits; Y92.89 Other specified places as the place of occurrence of the external cause; Z79.899 Other long term (current) drug therapy; Z79.01 Long term (current) use of anticoagulants; Z79.891 Long term (current) use of opiate analgesic; Z88.5 Allergy status to narcotic agent; Z95.818 Presence of other cardiac implants and grafts; Z82.61 Family history of arthritis; Z83.42 Family history of familial hypercholesterolemia; Z68.26 Body mass index [BMI] 26.0-26.9, adult
CPT/HCPCS: 36415; 70450; 71045; 80048; 80053; 82728; 82962; 83036; 83605; 83615; 83735; 83880; 84100; 84132; 84484; 85014; 85018; 85025; 85610; 85730; 86141; 86850; 86900; 86901; 86920; 87040; 87081; 87426; 87804; 90935; 93005; 96365; 96375; 97163; G0378; J0610; J0696; J0885; J1815; J3490